=== PATIENT | male | born 1980 | race Caucasian/White ===

== ENCOUNTER 2019-10-11 05:59 | Day surgery (SDC) | payer OTHER ==
[~2019-10-11] VITALS: Ht 182.9 cm; Wt 97.1 kg
[2019-10-11] VITALS (7 sets, daily range): BP systolic 108–119; BP diastolic 54–70; PULSE 54–75; TEMP 97.6–97.9
[2019-10-11] MEDS ORDERED: FLOMAX 0.40.4 MG/CAP PO (06:34)
--- NOTE | 2019-10-11 06:46 | NUR ---
Pt. arrived to the floor independently ambulating. Pt. is A&OX3, assessment complete. 20G IV started to rt. forearm. Pt. denies pain. Pre-op orders completed.
--- NOTE | 2019-10-11 07:20 | NUR ---
Patient down to OR by bed.
--- NOTE | 2019-10-11 09:34 | NUR ---
Patient up from OR. Alert and oriented x 3. Family at bedside. States mild discomfort, but refuses pain meds at this time. Assessment complete. Post op VSS and Post op fluids infusing. Denies further needs at this time.
--- NOTE | 2019-10-11 10:01 | NUR ---
Patient up ambulating in room, steady gait. Denies further needs at this time. States mild pain at this time, requesting pain meds. Notified Dr. Velázquez for orders.
--- NOTE | 2019-10-11 10:37 | NUR ---
Patient up to restroom, voiding without difficulties, voiding red-tinged urine. Denies further needs at this time.
--- NOTE | 2019-10-11 11:30 | NUR ---
Patient up ambulating in room, voiding without difficulties, tolerating diet. Discharge education provided to patient. Educated on when to call provider and all new medications. Mother at bedside. Denies pain at this time, but states mild discomfort d/t stent. All questions answered, denies further needs at this time. INT discontinued, catheter tip intact. Denies further needs at this time. Patient out by wheelchair with surgical staff and family.
== END 2019-10-11 11:30 | disposition home or self-care (01) ==
LOC: SURG 05:59 → SDCO 05:59
DX: N20.2 Calculus of kidney with calculus of ureter (principal); Z79.899 Other long term (current) drug therapy; E78.5 Hyperlipidemia, unspecified; Z88.6 Allergy status to analgesic agent
CPT/HCPCS: OP; C1769; C2617; J0690; J1100; J1885; J2405; J2704; J3010; J7120; Q9967